=== PATIENT | female | born 1995 | race Two or more races ===

== ENCOUNTER 2023-01-28 10:42 | Emergency (ER) | payer BC ==
[~2023-01-28] VITALS: Ht 160 cm; Wt 63.5 kg
--- NOTE | 2023-01-28 11:05 | NUR ---
BIBSELF C/O NAUSEA AND VOMITING BLOOD, SINCE SATURDAY. DENIES PAIN. +FEVER 100.4F
--- NOTE | 2023-01-28 11:06 | NUR ---
DR. WONG AT BEDSIDE
--- NOTE | 2023-01-28 11:06 | NUR ---
C/O NAUSEA AND VOMITING , SHE ALSO SAID THAT SHE VOMITS SMALL AMOUNT OF BRIGHT RED BLOOD, RECENTLY TRAVELLED FROM [place]. WENT STRAIGHT TO ER FROM [facility]. CARE CONTINUES
--- NOTE | 2023-01-28 11:18 | NUR ---
URINE SAMPLE COLLECTED AND SENT TO LAB
[2023-01-28] MEDS ORDERED: ONDANSETRON HCL/PF 4 MG/2 ML VIAL ONE (11:21)
[2023-01-28] MEDS ORDERED: ONDANSETRON HCL/PF 4 MG/2 ML VIAL IVP ONE (11:30)
[2023-01-28] MEDS ORDERED: IV NS 0.9% 1,000 ML BAG IV ONE (11:30)
[2023-01-28 11:37] LABS: BASOPHILS % (AUTO) 0.2 % (0.0-2.0); HEMATOCRIT 40 % (33-45); HEMOGLOBIN 13.9 g/dL (11.5-14.8); LYMPHOCYTES # (AUTO) 0.8 K/uL (0.8-4.8); LYMPHOCYTES % (AUTO) 4.5 % (20.0-44.0); MEAN CORPUSCULAR HGB CONC 35 g/dl (31.0-36.0); MEAN CORPUSCULAR VOLUME 90 fL (82-100); MONOCYTES # (AUTO) 1.3 K/uL (0.1-1.30); MONOCYTES % (AUTO) 7.4 % (2.0-12.0); NEUTROPHILS # (AUTO) 15.7 K/uL (1.8-8.9); NEUTROPHILS % (AUTO) 87.9 % (43.0-81.0); PLATELET COUNT (AUTO) 238 K/uL (150-450); WHITE BLOOD COUNT (AUTO) 17.8 K/uL (4.3-11.0)
[2023-01-28 12:06] LABS: BILIRUBIN,URINE 1+ (NEGATIVE); COLOR,URINE DARK YELLOW (YELLOW); LEUKOCYTE ESTERASE ,URINE 2+ (NEGATIVE); NITRITE, URINE NEGATIVE (NEGATIVE); PROTEIN,URINE 3+ mg/dl (NEGATIVE); UGLUCOSE NEGATIVE (NEGATIVE)
[2023-01-28 12:12] LABS: BACTERIA,URINE Few /HPF (None Seen); SQUAMOUS EPITHELIAL CELL,UR Moderate /HPF (None Seen)
[2023-01-28 12:27] LABS: POTASSIUM 3.5 mmol/L (3.5-5.1)
[2023-01-28 12:30] LABS: ALBUMIN 4.3 g/dL (3.4-5.0); BILIRUBIN,DIRECT 0.2 mg/dL (0.0-0.2); BILIRUBIN,TOTAL 0.7 mg/dL (0.2-1.0); TOTAL PROTEIN, SERUM 9.7 g/dL (6.4-8.2)
[2023-01-28] MEDS ORDERED: CEPH500C2 PO (12:36)
[2023-01-28] MEDS ORDERED: CEFTRIAXONE 1GM BAG (ER ONLY) 1 GM/50 ML PIGGYBACK IV ONE (13:00)
[2023-01-28] MEDS ORDERED: ACETAMINOPHEN ES 500 MG TABLET PO ONE (13:00)
[2023-01-28] MEDS ORDERED: ACETAMINOPHEN ES 500 MG TABLET ONE (13:17)
[2023-01-28] MEDS ORDERED: CEFTRIAXONE 1GM BAG (ER ONLY) 50 ML IV ONE (13:17)
[2023-01-28 13:28] VITALS: BP 108/68
--- NOTE | 2023-01-28 13:44 | NUR ---
Patient discharged to home in stable condition. Written and verbal after care instructions given. Patient verbalizes understanding of instruction.
--- NOTE | 2023-01-28 13:44 | NUR ---
IV removed. Catheter intact and site benign. Pressure and 4x4 applied to site. No bleeding noted.
== END 2023-01-28 13:44 | disposition home or self-care (01) ==
LOC: ER 10:42
DX: N12 Tubulo-interstitial nephritis, not specified as acute or chronic (principal); Z79.899 Other long term (current) drug therapy
CPT/HCPCS: 99284; 96374; 96361; 96375; 85025; 80048; 87086; 83690; 80076; 84703; 81001; J2405; J7030; J0696; 36415

== ENCOUNTER 2023-01-30 09:43 | Emergency (ER) | payer BC ==
[~2023-01-30] VITALS: Ht 162.6 cm; Wt 63.5 kg
[~2023-01-30 09:43] MED LIST: CEPH500C2 PO
--- NOTE | 2023-01-30 10:07 | NUR ---
phlebiotomist at bedside
[2023-01-30 10:52] LABS: CALCIUM, SERUM 8.9 mg/dL (8.5-10.1); CREATININE 0.8 mg/dL (0.6-1.3); POTASSIUM 3.5 mmol/L (3.5-5.1)
[2023-01-30 10:56] LABS: BASOPHILS % (AUTO) 0.3 % (0.0-2.0); EOSINOPHILS % (AUTO) 0.1 % (0.0-6.0); HEMATOCRIT 34 % (33-45); HEMOGLOBIN 11.8 g/dL (11.5-14.8); LYMPHOCYTES # (AUTO) 1.6 K/uL (0.8-4.8); LYMPHOCYTES % (AUTO) 15.7 % (20.0-44.0); MEAN CORPUSCULAR HGB CONC 35 g/dl (31.0-36.0); MEAN CORPUSCULAR VOLUME 90 fL (82-100); MONOCYTES # (AUTO) 1.5 K/uL (0.1-1.30); MONOCYTES % (AUTO) 14.9 % (2.0-12.0); PLATELET COUNT (AUTO) 288 K/uL (150-450); RED BLOOD CELL COUNT(AUTO) 3.79 MIL/uL (4.0-5.2); WHITE BLOOD COUNT (AUTO) 10.2 K/uL (4.3-11.0)
[2023-01-30 11:14] LABS: BILIRUBIN,DIRECT 0.1 mg/dL (0.0-0.2); BILIRUBIN,TOTAL 0.4 mg/dL (0.2-1.0); TOTAL PROTEIN, SERUM 7.4 g/dL (6.4-8.2)
[2023-01-30] MEDS ORDERED: ONDA4TAB11 PO (11:15)
[2023-01-30] MEDS ORDERED: SULF1TAB48 PO (11:15)
--- NOTE | 2023-01-30 11:31 | NUR ---
Patient discharged to home in stable condition. Written and verbal after care instructions given. Patient verbalizes understanding of instruction.
[2023-01-30 11:35] VITALS: BP 110/62
== END 2023-01-30 11:37 | disposition home or self-care (01) ==
LOC: ER 09:48
DX: N12 Tubulo-interstitial nephritis, not specified as acute or chronic (principal); Z79.899 Other long term (current) drug therapy
CPT/HCPCS: 36415; 80048-TC; 80076-TC; 83690-TC; 85025-TC